=== PATIENT | female | born 1950 | race Caucasian/White ===

== ENCOUNTER 2022-12-16 08:17 | Day surgery (SDC) | payer MEDICARE, OTHER ==
[~2022-12-16] VITALS: Ht 162.6 cm; Wt 46.3 kg
[2022-12-16] MEDS ORDERED: Vitamin B-12100 MCG (08:46)
[2022-12-16] MEDS ORDERED: FOLI1 (08:46)
[2022-12-16 09:10] VITALS: BP 131/79
--- NOTE | 2022-12-16 10:28 | NUR ---
12/16/22 1028 Lulu Tao STATED PREP TOOK A LONG TIME TO WORK AND THAT BM STILL BROWN. DR CUEVAS SPOKE WITH AND PATIENT AND PROCEDURE CHANGED TO UPPER ENDOSCOPY ONLY.
--- NOTE | 2022-12-16 10:41 | NUR ---
12/16/22 1041 TaoHernandezLulu PROCEDURE CANCELLED BY MD CUEVAS AND MD JUNG IN PREOP DUE TO PT'S OVER ALL POOR HEALTH AND DECREASED LUNG CAPACITY. AND PT AGREE TO CANCEL DUE TO HIGH RISK OF NEEDED BREATHING MACHINE WITH DOING THE PROCEDURE WITH ANESTHESIA.
== END 2022-12-16 10:42 | disposition home or self-care (01) ==
LOC: ORSCSDS 08:17
DX: K52.9 Noninfective gastroenteritis and colitis, unspecified (principal); R63.4 Abnormal weight loss; Z53.9 Procedure and treatment not carried out, unspecified reason
CPT/HCPCS: J7120

== ENCOUNTER → 2022-12-24 | Outpatient (CLI) | payer MEDICARE, OTHER ==
[~2022-12-24] MED LIST: FOLI1; Vitamin B-12100 MCG
[2022-12-24 20:53] LABS: Adenovirus F 40/41 Not Detected (NOT DETECT); Astrovirus Not Detected (NOT DETECT); Campylobacter Sp Not Detected (NOT DETECT); Cryptosporidium Not Detected (NOT DETECT); Cyclospora Cayetanensis Not Detected (NOT DETECT); E. Coli O157 Not Detected (NOT DETECT); Entamoeba Histolytica Not Detected (NOT DETECT); Enteroaggregative E. coli-EAEC Not Detected (NOT DETECT); Enteropathogenic E. coli-EPEC Not Detected (NOT DETECT); Enterotoxigenic E. coli-ETEC Not Detected (NOT DETECT); Giardia Lamblia Not Detected (NOT DETECT); Norovirus GI/GII Not Detected (NOT DETECT); Plesiomonas Shigelloides Not Detected (NOT DETECT); Rotavirus A Not Detected (NOT DETECT); Salmonella Sp Not Detected (NOT DETECT); Sapovirus Not Detected (NOT DETECT); Shiga Toxin-prod E. coli-STEC Not Detected (NOT DETECT); Shigella/Enteroin E. coli-EIEC Not Detected (NOT DETECT); Vibrio Cholerae Not Detected (NOT DETECT); Vibrio Sp Not Detected (NOT DETECT); Yersinia Enterocolitica Not Detected (NOT DETECT)
== END ==
LOC: LAB SHORT 08:00 → LAB 08:00
PROVIDERS: Physician Assistant
DX: K52.9 Noninfective gastroenteritis and colitis, unspecified (principal)
CPT/HCPCS: 87507